=== PATIENT | male | born 1975 | race Caucasian/White ===

== ENCOUNTER → 2020-09-26 | Outpatient (CLI) | payer OTHER ==
[~2020-09-26] MED LIST: ASPIR 8181 MG PO; ASPIRIN 325MG325 MG PO; ASPIRIN CHEWABL81 MG PO; BREO ELLIPTA 11 EACH INH; BUSPAR 10MG10 MG PO; CLARITIN10 MG PO; CYCLOBENZAPRINE5 MG PO; HABITROL 21 MG P1 EA TD; HYDROCODON-ACE1 EAC4 PO; IBUPROFEN600 MG PO; LIPITOR TAB 1010 MG PO; LIPITOR TAB 2020 MG PO; LIPITOR20 MG PO; LISINOPRIL-HCT1 EAC2 PO; LISINOPRIL10 MG PO; LOPRESSOR 25 MG25 MG PO; MIRALAX 119 GR119 GM PO; NEURONTIN300 MG PO; NITROSTAT0.4 MG SL; NORVASC 5 MG TAB5 MG PO; PRILOSEC OTC20 MG PO; PROTONIX40 MG PO; SYMBICORT 16010.2 GM INH; TIZANIDINE HCL2 M1 PO; TORADOL 10 MG T10 MG PO; TRIAMCINOLONE CREAM TOP; ZANTAC150 MG PO; ZOFRAN ODT 4 MG4 MG PO
== END ==
LOC: EXRD 08:52
DX: R79.89 Other specified abnormal findings of blood chemistry (principal); R10.10 Upper abdominal pain, unspecified; K76.0 Fatty (change of) liver, not elsewhere classified
CPT/HCPCS: 76700

== ENCOUNTER → 2020-12-04 | Outpatient (CLI) | payer OTHER ==
[2020-12-04 13:39] LABS: HEMOGLOBIN 17.2 gm/dl (14.0-17.5); RED BLOOD COUNT 5.74 M/UL (4.20-5.50); WHITE BLOOD COUNT 9.4 K/UL (4.5-11.0)
[2020-12-04 14:13] LABS: BUN/CREATININE RATIO 13 (0-10)
== END ==
LOC: OPSV2 11:30
PROVIDERS: Orthopaedic Surgery
DX: Z01.812 Encounter for preprocedural laboratory examination (principal); G56.02 Carpal tunnel syndrome, left upper limb
CPT/HCPCS: 36415; 80048; 85025

== ENCOUNTER → 2020-12-12 | Day surgery (SDC) | payer OTHER | END | disposition home or self-care (01) | LOC: OR 06:37 | DX: G56.03 Carpal tunnel syndrome, bilateral upper limbs (principal); I10 Essential (primary) hypertension; E78.5 Hyperlipidemia, unspecified; J44.9 Chronic obstructive pulmonary disease, unspecified; I25.2 Old myocardial infarction; I25.10 Atherosclerotic heart disease of native coronary artery without angina pectoris; K21.9 Gastro-esophageal reflux disease without esophagitis; K76.0 Fatty (change of) liver, not elsewhere classified; F40.240 Claustrophobia; Z79.82 Long term (current) use of aspirin; Z86.73 Personal history of transient ischemic attack (TIA), and cerebral infarction without residual deficits; Z87.891 Personal history of nicotine dependence | CPT/HCPCS: J1100; J1885; J2250; J2405; J2704; J3010; J7120 ==

== ENCOUNTER → 2021-03-05 | Outpatient (CLI) | payer OTHER ==
[2021-03-05 08:34] LABS: HEMOGLOBIN 16.8 gm/dl (14.0-17.5); RED BLOOD COUNT 5.55 M/UL (4.20-5.50); WHITE BLOOD COUNT 9.1 K/UL (4.5-11.0)
[2021-03-05 08:50] LABS: BUN/CREATININE RATIO 10 (0-10)
== END ==
LOC: OPSV2 07:35
PROVIDERS: Orthopaedic Surgery
DX: Z01.812 Encounter for preprocedural laboratory examination (principal); G56.01 Carpal tunnel syndrome, right upper limb
CPT/HCPCS: 36415; 80048; 85025

== ENCOUNTER → 2021-03-18 | Day surgery (SDC) | payer OTHER ==
[~2021-03-18] VITALS: Ht 172.7 cm; Wt 124.3 kg
== END | disposition home or self-care (01) ==
LOC: OR 03-11 07:30
DX: G56.01 Carpal tunnel syndrome, right upper limb (principal); I10 Essential (primary) hypertension; E78.5 Hyperlipidemia, unspecified; J44.9 Chronic obstructive pulmonary disease, unspecified; I25.2 Old myocardial infarction; I25.10 Atherosclerotic heart disease of native coronary artery without angina pectoris; K21.9 Gastro-esophageal reflux disease without esophagitis; K76.0 Fatty (change of) liver, not elsewhere classified; F41.0 Panic disorder [episodic paroxysmal anxiety]; F40.240 Claustrophobia; Z20.822 Contact with and (suspected) exposure to COVID-19; Z79.82 Long term (current) use of aspirin; Z87.891 Personal history of nicotine dependence
CPT/HCPCS: J0690; J1100; J1170; J1885; J2250; J2405; J2704; J3010; J7120

== ENCOUNTER → 2021-04-17 | Day surgery (SDC) | payer OTHER | END | disposition home or self-care (01) | LOC: OR 06:08 | DX: Z12.11 Encounter for screening for malignant neoplasm of colon (principal); D12.4 Benign neoplasm of descending colon; K64.0 First degree hemorrhoids; K63.5 Polyp of colon; Z20.822 Contact with and (suspected) exposure to COVID-19; I10 Essential (primary) hypertension; E78.00 Pure hypercholesterolemia, unspecified; F41.9 Anxiety disorder, unspecified; I25.2 Old myocardial infarction; E66.01 Morbid (severe) obesity due to excess calories; Z79.82 Long term (current) use of aspirin; Z79.899 Other long term (current) drug therapy | CPT/HCPCS: J2704; J7040 ==

== ENCOUNTER → 2021-07-24 | Outpatient (CLI) | payer OTHER | LOC: EXRD 15:17 | DX: J20.9 Acute bronchitis, unspecified (principal) | CPT/HCPCS: 71046 ==